=== PATIENT | female | born 1990 | race Caucasian/White ===

== ENCOUNTER 2016-07-05 08:20 | Emergency (ER) | payer OTHER, SELFPAY ==
[2016-07-05] MEDS ORDERED: cefTRIAXone\\ROCEPHIN 1 GM VIAL ONE (08:32)
--- NOTE | 2016-07-05 09:12 | PICIS ---
[facility] EMERGENCY RECORD TRIAGE (08:25 KMOR) TRIAGE NOTES: Facial swelling started 1 day ago unkn cause, sore throat today. (08:25 KMOR) PATIENT: NAME: Cassius Woo, AGE: 25, GENDER: female, : Sat1990, TIME OF GREET: SatJul 05, 2016 08:21, PREFERRED LANGUAGE: Sudanese, ETHNICITY: Not or , ECODE BILLING MAP: [facility], SSN: [id number], Zip Code: [address], KG WEIGHT: 58.97, , , PERSON ID: [id number], PCP: DO LAL JOHN SCOTT. (08:25 KMOR) PHONE: . (08:44) COMPLAINT: Facial swelling. (08:25 KMOR) ADMISSION: URGENCY: 3 Urgent, ADMISSION SOURCE: Home, TRANSPORT: CAR, BED: ER -02. (08:25 KMOR) ASSESSMENT: Assessment: A&OX4. RR EVEN UNLABORED., Symptoms began yesterday. (08:32 KMOR) PAIN: No complaint of pain. (08:32 KMOR) SIRS SCORING: Heart Rate 55-109 (0), Temp range 96.8-101.1 (0), respiratory rate 12-24 (0), Mental Status altered: no (0), Infection or Suspected Infection: No. (08:32 KMOR) TRIAGE SCREENING: Patient denies suicidal ideation, Patient denies presence of domestic violence. (08:32 KMOR) LMP: Last menstrual period: 07/05/2016. (08:32 KMOR) PROVIDERS: TRIAGE NURSE: Cyndy Garcia RN. (08:25 KMOR) VITAL SIGNS: BP 140/79, Resp 16, Temp 98.0, (Oral), Pain 0, Time 07/05/2016 08:24. (08:24 KMOR) Pulse 69, O2 Sat 100, on Room Air, Time 07/05/2016 08:29. (08:29 KMOR) KNOWN ALLERGIES No Known Drug Allergies CURRENT MEDICATIONS (08:33 KMOR) None VITAL SIGNS VITAL SIGNS: BP: 140/79, Resp: 16, Temp: 98.0 (Oral), Pain: 0, Time: 07/05/2016 08:24. (08:24 KMOR) Pulse: 80, Time: 07/05/2016 08:26. (08:26 LSMI) Pulse: 69, O2 sat: 100 on Room Air, Time: 07/05/2016 08:29. (08:29 KMOR) NURSING ASSESSMENT: SKIN (08:39 KMOR) CONSTITUTIONAL: Patient arrives ambulatory, Gait steady, History obtained from patient, Patient appears comfortable, Patient cooperative, Patient alert, Oriented to person, place and time, Skin warm, Skin dry, Skin normal in color, Mucous membranes pink, Mucous membranes moist, Patient is well-groomed, Patient complains of Facial swelling, Patient report right sided facial swelling started 1 day ago, reports no known allergies. Reports having a sore throat today. PAIN: Patient rates pain as 0 out of 10. &a-1R&a+25V*p+0X*x8186H*c202B*c15G*c2P*p-0X&a-25V&a+1R Name: Cassius Woo : 1990 F25 MedRec: [id number] AcctNum: [id number] Prepared: [facility] Jul 05, 2016 09:16 by Interface Page [address] [facility] EMERGENCY RECORD SKIN: Skin assessment findings include skin warm, Skin dry, Skin normal in color, Inspection findings include no rash, Inspection findings include no redness, Inspection findings include swelling, to right cheek. NURSING PROCEDURE: DISCHARGE NOTE (09:11 LSMI) DISCHARGE: Patient discharged to home, ambulating without assistance, family driving, accompanied by parent, Summary of Care printed/ provided, Transition record given to patient, Discharge instructions given to patient, Simple or moderate discharge teaching performed, Prescriptions given and instructions on side effects given, Name of prescription(s) given: augmentin 875, Above person(s) verbalized understanding of discharge instructions and follow-up care. MEDICATION ADMINISTRATION SUMMARY Drug Name: Rocephin injection, Dose Ordered: 1 g, Route: Intramuscular, Status: Given, Time: 08:41 07/05/2016, Drug Name: Augmentin, Dose Ordered: 875 mg, Route: Oral, Status: Given, Time: 08:40 07/05/2016, Detailed record available in Medication Service section. MEDICATION SERVICE Augmentin: Order: Augmentin (amoxicillin trihydrate/potassium clavulanate) - Dose: 875 mg : Oral Schedule: Now Ordered by: Ed Diaz MD Entered by: Ed Diaz MD [facility] Jul 05, 2016 08:33 , Acknowledged by: Roxy Whitaker LVN [facility] Jul 05, 2016 08:36 Documented as given by: Roxy Whitaker LVN [facility] Jul 05, 2016 08:40 Patient, Medication, Dose, Route and Time verified prior to administration. Site: Medication administered P.O., Correct patient, time, route, dose and medication confirmed prior to administration, Patient advised of actions and side-effects prior to administration, Allergies confirmed and medications reviewed prior to administration, Patient in position of comfort, Side rails up, Cart in lowest position, Family at bedside, Call light in reach. : Follow Up : Response assessment performed, No signs or symptoms of allergic reaction noted. (09:13 LSMI) Rocephin injection: Order: Rocephin injection (ceftriaxone sodium) - Dose: 1 g : Intramuscular Schedule: Now Ordered by: Ed Diaz MD Entered by: Ed Diaz MD [facility] Jul 05, 2016 08:33 , Acknowledged by: Roxy Whitaker LVN [facility] Jul 05, 2016 08:36 Documented as given by: Roxy Whitaker LVN [facility] Jul 05, 2016 08:41 Patient, Medication, Dose, Route and Time verified prior to administration. &a-1R&a+25V*p+0X*o4204I*c202B*c15G*c2P*p-0X&a-25V&a+1R Name: Bay Wo[place]nor Jett : 1990 F25 MedRec: [id number] AcctNum: [id number] Prepared: SatJul 05, 2016 09:16 by Interface Page [address] [facility] EMERGENCY RECORD Correct patient, time, route, dose and medication confirmed prior to administration, Patient advised of actions and side-effects prior to administration, Allergies confirmed and medications reviewed prior to administration, Patient in position of comfort, Side rails up, Cart in lowest position, Family at bedside, Call light in reach. : Follow Up : Response assessment performed, No signs or symptoms of allergic reaction noted. (09:13 LSMI) HPI CELLULITIS (08:55 DHAM) CHIEF COMPLAINT: Patient presents for evaluation of swelling, to right face. HISTORIAN: History provided by patient. MECHANISM: Possible mechanism Pt has no pain in the teeth, and denied mouth or facial pain. LOCATION: Symptoms are localized, on the right, cheek. SEVERITY: Current severity of pain rated as 0/10. TIME COURSE: Gradual onset of symptoms, 1, days priror to arrival, Symptoms are worsening, increased swelling today. ASSOCIATED WITH: No associated drainage, No associated fever, No associated nausea, No associated proximal streaking, just a hint of sore throat with swallowing this morning. COMPLICATING FACTORS: No complicating factors. EXACERBATED BY: Patient's condition exacerbated by nothing. RELIEVED BY: Patient's condition relieved by has tried benadryl and motrin with no improvement. ROS (08:58 DHAM) CONSTITUTIONAL: Historian denies chills, denies fever, denies lethargy. EYES: Historian denies eye pain, denies eye redness, denies eye discharge. ENT: Historian denies otalgia, denies rhinorrhea, reports sore throat, denies stridor, denies voice changes. CARDIOVASCULAR: Historian denies chest pain, no radiation, Historian denies diaphoresis, denies orthopnea. RESPIRATORY: Historian denies cough, denies shortness of breath, denies sputum, denies stridor, denies wheezing. GI: Historian denies abdominal pain, denies nausea, denies vomiting. GENITOURINARY FEMALE: Historian denies dysuria, denies frequency, denies urgency. MUSCULOSKELETAL: Historian denies arthralgias, denies back pain, denies fall, denies injury. SKIN: Historian denies rash, denies skin changes, denies skin lesions. NEUROLOGIC: Historian denies confusion, denies headache. HEMO/LYMPHATIC: Historian denies abnormal blood clotting, denies easy bruising. ALLERGIC/IMMUNOLOGIC: Historian denies eczema, denies environmental allergies, denies frequent infections, denies hives. &a-1R&a+25V*p+0X*s0765S*c202B*c15G*c2P*p-0X&a-25V&a+1R Name: Cassius Woo : 1990 F25 MedRec: [id number] AcctNum: [id number] Prepared: Ivette Jul 05, 2016 09:16 by Interface Page [address] [facility] EMERGENCY RECORD denies itching on the face or thoat. PAST MEDICAL HISTORY MEDICAL HISTORY: Flu vaccine not up to date, Tetanus not up to date, No past medical history of cardiac disease, Notes: PREECLAMPSIA. (08:32 KMOR) FEMALE SURGICAL HISTORY: LAPROSCOPIC SURGERY; OVARIAN CYST REMOVAL, Surgical history of section. (08:32 KMOR) PSYCHIATRIC HISTORY: No previous psychiatric history. (08:32 KMOR) SOCIAL HISTORY: Patient is a former tobacco user, Tobacco history notes: QUIT 2 WEEKS AGO, Patient denies alcohol use, Patient denies drug use. (08:32 KMOR) FAMILY HISTORY: Family history includes asthma, maternal grandmother, Family history includes coronary artery disease, paternal grandfather, Family history includes diabetes, mother, maternal grandmother, Family history includes hypertension, mother, maternal grandmother, maternal grandfather. (08:32 KMOR) NOTES: I have reviewed the nursing documentation regarding PMHX, social hx, family hx, and surgical history as well as vitals and triage notes and agree. (09:03 DHAM) PHYSICAL EXAM (09:00 DHAM) CONSTITUTIONAL: Vital Signs Reviewed, Patient afebrile, Pulse normal, Blood pressure normal, Respiratory rate normal, Normal pulse oximetry, Patient appears non toxic, Patient appears pain free, Patient alert and oriented to person, place and time, Nursing notes reviewed. HEAD: Head exam included findings of head atraumatic, normocephalic. EYES: Eye exam included findings of eyelids normal to inspection, Pupils equally round and reactive to light, Extraocular muscles intact, Conjunctiva normal, Sclera normal, Eye exam included findings of anterior chamber clear. ENT: Ear exam normal, external ear normal, tympanic membranes normal, no foreign body, no drainage, no bleeding, hearing normal, Nose exam normal, no nasal deformity, no bleeding from nares, no bleeding from hypopharynx, no foreign body visualized, no septal hematoma, no septal necrosis, No turbinate mucosa discharge, Pharynx exam normal, not injected, no swelling, symmetrical, Uvula exam normal, midline, no edema, Tonsil exam normal, not enlarged, no exudates, Mouth exam included findings of, Laceration noted, just adjacent to the posterior lower right molar she has a .5x.5cm shallow ulceration that is mildly tender. it is not near the parotid duct. no swelling in the mouth and no swelling or tenderness beneath the tongue. teeth are not tender to palpation, teeth normal, right cheek is diffusely swollen wth a hint of firmness anteriorly just overlying the maxillary sinus. this is mildly tender. no parotid swelling. NECK: Neck exam included findings of normal range of motion, &a-1R&a+25V*p+0X*i2704Q*c202B*c15G*c2P*p-0X&a-25V&a+1R Name: Cassius Woo : 1990 F25 MedRec: [id number] AcctNum: [id number] Prepared: Ivette Jul 05, 2016 09:16 by Interface Page [address] [facility] EMERGENCY RECORD Trachea midline, Thyroid normal, no meningeal signs, no cervical adenopathy, no tenderness, no contusions, no ecchymosis, no swelling or tenderness palpable anywhere in the neck to palpation. RESPIRATORY CHEST: Respiratory exam included findings of no respiratory distress, Breath sounds clear, No wheezing, No rales, No rhonchi, Breath sounds not diminished, Chest exam included findings of chest movement symmetrical. CARDIOVASCULAR: Cardiovascular exam included findings of heart rate regular rate and rhythm, Heart sounds normal, normal S1, normal S2, no murmurs, no rub, no gallop. UPPER EXTREMITY: Upper extremity exam normal, Upper extremity exam included findings of inspection normal, no abrasions, no contusions, no deformity, no lacerations, Range of motion normal, Motor strength normal, Sensation intact, Brachial pulse normal, Radial pulse normal. LOWER EXTREMITY: Lower extremity exam normal, Lower extremity exam included findings of inspection normal, no abrasions, no contusions, no deformity, no lacerations, Range of motion normal, Motor strength normal, Sensation intact, Pedal pulse normal, Delano's negative, no edema, no calf tenderness. NEURO: Neuro exam findings include patient oriented to person, place and time, Speech normal, Gait normal, Deanna coma scale 15, Memory normal, Cranial nerves intact, Deep tendon reflexes normal, no focal motor deficits, no focal sensory deficits. SKIN: Skin exam included findings of skin warm, dry, and normal in color, no rash. LYMPHATIC: Lymphatic exam normal, Lymphatic exam included findings of cervical nodes normal. PSYCHIATRIC: Psychiatric exam included findings of patient oriented to person place and time, Normal affect, Judgment normal, Insight normal, Remote memory normal, Recent memory normal, Concentration normal, No suicidal ideations, No homicidal ideations. EVENTS TRANSFER: Triage to Emergency Emergency Room -02. (SatJul 05, 2016 08:25 KMOR) Removed from Emergency Emergency Room -02. (: LSMI) O2SAT INTERPRETATION (: DHAM) O2SAT: Single pulse oximetry, Oxygen saturation 100%, on room air, Oxygen saturation interpretation: Normal, No intervention required. DOCTOR NOTES (: DHAM) TEXT: I think this swelling is either inoculation from this oral ulcer or a sinusitis with extension. I favor the former. she has no parotid swelling and I see no evidence of mumps. She [place] 2 [address] [place] with good transportation as I am a bit concerned with the throat symptoms and she will return immediately for any worsening in &a-1R&a+25V*p+0X*a3981L*c202B*c15G*c2P*p-0X&a-25V&a+1R Name: Cassius Woo : 1990 F25 MedRec: [id number] AcctNum: [id number] Prepared: SatJul 05, 2016 09:16 by Interface Page [address] [facility] EMERGENCY RECORD this area. see dci. PROBLEM LIST No recorded problems DIAGNOSIS (: DHAM) FINAL: PRIMARY: facial cellulitis, ADDITIONAL: apthous ulcer. DISPOSITION PATIENT: Disposition Type: Discharge, Disposition: *Discharge Home. (: DHAM) Patient left the department. (: LSMI) INSTRUCTION (: DHAM) DISCHARGE: CELLULITIS, FACIAL. FOLLOWUP: DO HALI, MAREK LAGUERRE, [facility], [address] [place] [address], . SPECIAL: Augmentin 875mg twice a day for 10 days Return immediately for increased difficulty swallowing, throat swelling, shortness of breath, fever, or any other concerns. See your pcp tomorrow for brief recheck. PRESCRIPTION (: [facility]) Augmentin: TABLET : 875 mg-125 mg : ORAL : Quantity: 1 Unit: tab(s) Route: ORAL Schedule: 2 times a day (with meals) Dispense: 20 Unit: tab(s) May substitute. Refills: No Refills . NOTES: No refills. IM[facility]ING (: [facility]) *DISCHARGE INSTRUCTIONS RECEIPT: Image captured from scanner. *SUPPLY CHARGE SHEET: Image captured from scanner. ADMIN (: [facility]) DIGITAL SIGNATURE: MD Diaz Darren. Donaldson: RINA=MD Diaz Darren KMOR=MAXIMO Garcia, Cyndy LSMI=BRENDAN Whitaker Leah &a-1R&a+25V*p+0X*v0073E*c202B*c15G*c2P*p-0X&a-25V&a+1R Name: Cassius Woo : 1990 F25 MedRec: [id number] AcctNum: [id number] Prepared: Ivette Jul 05, 2016 09:16 by Interface Page 6 of 6 pMD MTDD
== END 2016-07-05 09:11 | disposition home or self-care (01) ==
LOC: BURERS 08:20
DX: L03.211 Cellulitis of face (principal); K12.0 Recurrent oral aphthae; Z87.891 Personal history of nicotine dependence
CPT/HCPCS: 96372; J0696

== ENCOUNTER 2019-03-08 12:55 | Emergency (ER) | payer MEDICAID, SELFPAY ==
[2019-03-08] MEDS ORDERED: Acetaminophen/Codeine 30-300mg Tablet ONE (13:11)
== END 2019-03-08 13:17 | disposition home or self-care (01) ==
LOC: BURERS 12:55
DX: M77.9 Enthesopathy, unspecified (principal); F41.9 Anxiety disorder, unspecified; F32.9 Major depressive disorder, single episode, unspecified; F17.210 Nicotine dependence, cigarettes, uncomplicated
CPT/HCPCS: 99283

== ENCOUNTER 2022-07-30 15:02 | Emergency (ER) | payer MEDICAID, SELFPAY ==
[2022-07-30] MEDS ORDERED: Ibuprofen 800 MG TAB ONE (15:24)
[2022-07-30] MEDS ORDERED: cloNIDine 0.1 MG TAB ONE (15:24)
== END 2022-07-30 16:28 | disposition home or self-care (01) ==
LOC: BURERS 15:02
DX: I10 Essential (primary) hypertension (principal); Z79.899 Other long term (current) drug therapy; F17.290 Nicotine dependence, other tobacco product, uncomplicated
CPT/HCPCS: 99283

== ENCOUNTER 2022-12-13 16:21 | Emergency (ER) | payer SELFPAY | END 2022-12-13 17:07 | disposition home or self-care (01) | LOC: BURERS 16:21 | DX: M54.42 Lumbago with sciatica, left side (principal); M25.512 Pain in left shoulder; I10 Essential (primary) hypertension; F17.290 Nicotine dependence, other tobacco product, uncomplicated | CPT/HCPCS: 99283 ==